=== PATIENT | female | born 1980 | race Two or more races ===

== ENCOUNTER 2024-07-13 15:34 | Outpatient (REF) | payer SELFPAY ==
[2024-07-13 16:23] LABS: MANUAL DIFF FLAG NO
[2024-07-13 16:35] LABS: Basophils Percent Auto 0.4 % (0-2); Eosinophils Absolute Auto 0.1 X10*3/uL (0.0-0.4); Eosinophils Percent Auto 0.8 % (0-4); Hematocrit 37.1 % (37.0-47.0); Hemoglobin 12.3 g/dl (12.0-16.0); Imm Gran Abs Auto 0.02 X10*3/uL (0.00-0.03); Imm Gran Pct Auto 0.3 % (0.0-0.4); Lymphocytes Absolute Auto 1.7 X10*3/uL (1.2-4.9); Lymphocytes Percent Auto 21.8 % (20-40); Mean Corpuscular HGB Conc 33.2 g/dl (31.0-35.0); Mean Corpuscular Hemoglobin 31.4 pg (27.0-33.0); Mean Corpuscular Volume 94.6 fL (80.0-98.0); Mean Platelet Volume 10.2 fL (9.4-12.3); Monocytes Absolute Auto 0.6 X10*3/uL (0.1-1.2); Monocytes Percent Auto 8.2 % (2-11); Neutrophils Absolute Auto 5.3 x10*3/uL (2.0-8.3); Neutrophils Percent Auto 68.5 % (45-73); Platelet Count 310 X10*3/uL (160-400); Red Blood Count 3.92 X10*6/uL (4.20-5.50); Red Cell Distribution Width 12.6 % (11.0-16.0); White Blood Count 7.7 X10*3/uL (4.8-10.8)
[2024-07-13 17:14] LABS: Anion Gap 12 (12-20); Blood Urea Nitrogen 16 mg/dL (9-16); Calcium 9.9 mg/dL (8.4-10.2); Carbon Dioxide 27 mmol/L (22-29); Chloride 105 mmol/L (96-108); Estimated Glomerular Filt Rate > 60; Glucose Random 90 mg/dL (60-115); Potassium 3.5 mmol/L (3.3-5.1); Sodium 140 mmol/L (135-145)
== END 2024-07-13 15:35 | disposition home or self-care (01) ==
LOC: HO.HHCL 15:34
PROVIDERS: Visit Provider Family Medicine
DX: R55 Syncope and collapse (principal)
CPT/HCPCS: 36415; 80048; 85025

== ENCOUNTER 2025-04-03 11:03 | Emergency (ER) | payer MEDICAID, SELFPAY ==
--- NOTE | ~2025-04-03 | CT_ITS ---
EXAMINATION: CT CERVICAL SPINE WITHOUT CONTRAST CLINICAL INFORMATION: Injury. COMPARISON: None available. TECHNIQUE: Contiguous axial images through the cervical spine using 3 mm collimation with bone and soft tissue algorithm. Sagittal and coronal reformatted images acquired. DLP: [address] examination was performed using dose optimization techniques as appropriate, variously including the following: *Automated exposure control *Adjustment of mA and/or kV according to patient size (this includes techniques or standardized protocols for targeted exams where dose is matched to indication/reason for exam; i.e. extremities or head) *Use of iterative reconstruction technique FINDINGS: Craniocervical junction is intact with normal alignment between the occipital condyles and lateral masses of C1. Marginal osteophyte formation and endplate sclerosis with decreased intervertebral disc height at C5-C6. Reverse kyphotic deformity apex at C5-C6. C1 is intact. C2 is intact. C3 is intact. C4 is intact. C5 is intact. C6 is intact. C7 is intact. No gross prevertebral compartment hematoma. Tympanic cavities and mastoid cells are aerated. Probable high riding right internal jugular bulb. CT/CT cervical spine wo IV con IMPRESSION: Cervical spondylosis C5-6 resulting in kyphotic deformity. No acute fracture or trauma-related listhesis. Fleischner guidelines were followed. Electronically signed by: Denys Dangelo MD 04/03/2025 03:09 PM EDT
--- NOTE | ~2025-04-03 | XR_ITS ---
CLINICAL HISTORY: fall, pain 3 views sacrum and coccyx Comparison: None Findings No acute fractures. No significant degenerative change. No erosions. IMPRESSION: No acute findings This document has been electronically signed by: Ajith Jordan MD on 04/03/2025 21:19:59
--- NOTE | ~2025-04-03 | CT_ITS ---
EXAMINATION: CT HEAD WITHOUT CONTRAST CLINICAL INFORMATION: hit head COMPARISON: None available. TECHNIQUE: Contiguous axial imaging was performed from the skull base to vertex without intravenous administration of contrast. This CT examination was performed using dose optimization techniques as appropriate, variously including the following: *Automated exposure control *Adjustment of mA and/or kV according to patient size (this includes techniques or standardized protocols for targeted exams where dose is matched to indication/reason for exam; i.e. extremities or head) *Use of iterative reconstruction technique DLP: 545 mGy-cm FINDINGS: No acute cortical disruption, bony calvarium or skull base. No acute intracranial hemorrhage, mass effect, midline shift, hydrocephalus or herniation. Combs-white matter differentiation is normal. Posterior cranial fossa contents demonstrated no acute intracranial hemorrhage or mass effect. Sellar/suprasellar region demonstrated no gross masses. Craniocervical junction demonstrates normal position of the cerebellar tonsils. No air-fluid levels in the paranasal sinuses. For pneumatization right frontal sinus. Tympanic cavities and mastoid air cells are aerated. Probable high riding right internal jugular bulb. CT/CT head/brain wo IV con IMPRESSION: No acute fracture, bony calvarium. No acute intracranial hemorrhage. Electronically signed by: Denys Dangelo MD 04/03/2025 02:59 PM EDT
[2025-04-03 13:32] VITALS: BP 104/66; PULSE 94; RESP 18; TEMP 36.2; O2SAT 100; BMI 25.8
--- NOTE | 2025-04-03 13:43 | ECG_ITS ---
Test Reason : syncope Blood Pressure : */* mmHG Vent. Rate : 89 BPM Atrial Rate : 89 BPM P-R Int : 142 ms QRS Dur : 68 ms QT Int : 366 ms P-R-T Axes : 52 64 41 degrees QTcB Int : 445 ms Normal sinus rhythm Normal ECG No previous ECGs available Referred By: Jero Mendoza Electronically Signed By: KELLY ARELLANO MD
--- NOTE | 2025-04-03 13:43 | ED.GENADULT ---
HPI - General Adult General Chief complaint: General Medical Stated complaint: head strike, dizzy, not feeling well Time Seen by Provider: 04/03/25 20:01 Source: patient, family and EMS Mode of arrival: EMS Limitations: no limitations History of Present Illness ED Provider: brittney marte np HPI narrative: Patient is a 44-year-old female who presents emergency department for evaluation. She reports yesterday evening at approximately 23:30 she had consumed a chicken sandwich with mustard from her job. 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 Throughout the day today, when she awakened she states that she had 2 episodes of bilious vomiting and 1 further episode of watery diarrhea. After the 2nd episode of vomiting she was feeling dizzy, sat down on the sofa, felt as though she needed to go to the bathroom again upon standing seems she had syncopized, striking her head into a piece of furniture? This was not witnessed, she does not recall exactly what happened, but states that she had regained consciousness almost immediately after, she went to sit down on the sofa which she thought was behind her but she missed in subsequently landed onto the ground onto her buttocks. She denies having a repeat head strike with this. Currently she is complaining of pain to her tailbone/coccyx. She denies any headache, dizziness, neck pain, neck stiffness, chest pain or shortness of breath. She denies any recent symptoms or concern for . Related Data Previous Rx's ?Medication ?Instructions ?Recorded cefpodoxime 200 mg tablet 200 mg PO BID #20 tabs 04/03/25 ondansetron 4 mg disintegrating 4 mg PO Q8H PRN nausea and 04/03/25 tablet vomiting #10 tabs Allergies Allergy/AdvReac Type Severity Reaction Status Date / Time No Known Allergies Allergy Verified 04/03/25 13:32 Review of Systems Review of Systems: Yes all other systems are reviewed and are negative PMFSH Past Medical History Attestation statement: The following information was validated with the patient. Source: old records reviewed Social History Social History Advance Directives: No Advance Directives Information Provided: No Do you have a plan to hurt others: No Plan Physical Exam ED Vital Signs: Vital Signs - 24 hr 04/03/25 23:56 04/04/25 00:00 Temperature 98.2 F 98.2 F Pulse Rate 72 72 Respiratory Rate 16 16 Blood Pressure 101/63 101/63 Pulse Oximetry 97 97 Oxygen Delivery Method Room Air Room Air BMI result Body Mass Index 25.8 Course Course Course Narrative: RME: 44-year-old female presents to ED for vomiting and diarrhea and then stood vomiting again and syncopal episode and fell and hit her head in the bathroom. Negative for any neuro deficits. Labs EKG head CT scan ordered Medications Administered Discontinued Medications Generic Name Dose Route Start Last Admin Trade Name Freq PRN Reason Stop Dose Admin Ceftriaxone Sodium 1 gm 04/03/25 21:01 04/03/25 21:47 Ceftriaxone Sodium 1 Gm Vial IVPUSH 04/03/25 21:02 1 gm ONCE ONE Administration Sodium Chloride 1,000 mls @ 999 mls/hr 04/03/25 21:15 04/03/25 23:44 Ns IV 04/03/25 22:15 Infused .Q1H1M ROBERT Infusion Ondansetron HCl 4 mg 04/03/25 21:01 04/03/25 21:47 Ondansetron Hcl 4 Mg/2 Ml Vial IVPUSH 04/03/25 21:02 4 mg ONCE ONE Administration Medical Decision Making Medical Decision Making [facility] Narrative: Patient is a 44-year-old female with no reported past medical history presenting for syncope after multiple bouts of vomiting and diarrhea as per HPI. Overall she is well-appearing, nontoxic. She has been focal neurological deficits. She is afebrile, no tachycardia. No hypoxia tachypnea. CT head and cervical spine were obtained prior to my assumption of care and are without ICH, SDH, fracture, no evidence of cervical spine fracture subluxation. I suspect that this was likely a vagal syncopal episode, obtaining orthostatic vital signs, she may have exhibited these symptoms secondary to dehydration in the setting of her gastrointestinal illness. She additionally had serum labs obtained prior to my assumption of care. CBC is without leukocytosis anemia or thrombocytopenia. No electrolyte derangement. No RICCARDO. LFTs overall unremarkable. High sensitive troponin is below detectable limits, ECG reveals normal sinus rhythm with ventricular rate of 89, QTC 445, no ST-elevation. HCG is negative. Urinalysis was obtained and is concerning for urinary tract infection, she denies dysuria, urinary frequency/urgency/hesitancy, denies hematuria. No history of kidney stones. She does admit that she does not drink enough water. On examination she has mild bilateral left > right CVA tenderness but otherwise was not reporting pain to this location prior to examination. She endorses mild nausea but has not had any episodes of vomiting since arrival to the ED. patient will receive 1 L normal saline IV fluids, Zofran IV, a dose of Rocephin IV. Given her CVA tenderness nausea and vomiting she may potentially have pyelonephritis, though she does not have an RICCARDO if she is otherwise able to tolerate oral intake and is not without systemic toxicity feel that she would be stable for discharge home outpatient follow-up with primary care provider strict return precautions. Differential Diagnosis Differential Diagnoses: The differential diagnosis associated with the presentation includes (See narrative above) Admission/Observation Consideration of admission/observation: Escalation of care including admission/observation considered (See narrative above) Lab Data MDM Lab Attestation statement: I reviewed the patient's lab results. (See narrative above) 04/03/25 14:11 04/03/25 14:11 Labs: Lab Results 04/03/25 04/03/25 Range/Units 14:11 20:11 WBC 8.1 (4.8-10.8) X10*3/uL RBC 4.46 (4.20-5.50) X10*6/uL Hgb 13.8 (12.0-16.0) g/dl Hct 41.0 (37.0-47.0) % MCV 91.9 (80.0-98.0) fL MCH 30.9 (27.0-33.0) pg MCHC 33.7 (31.0-35.0) g/dl RDW 12.6 (11.0-16.0) % Plt Count 286 (160-400) X10*3/uL MPV 9.3 L (9.4-12.3) fL Immature Gran % (Auto) 0.2 (0.0-0.4) % Neut % (Auto) 84.6 H (45-73) % Lymph % (Auto) 8.1 L (20-40) % [place] % (Auto) 6.8 (2-11) % Eos % (Auto) 0.1 (0-4) % Baso % (Auto) 0.2 (0-2) % Lymph # (Auto) 0.7 L (1.2-4.9) X10*3/uL [place] # (Auto) 0.6 (0.1-1.2) X10*3/uL Eos # (Auto) 0.0 (0.0-0.4) X10*3/uL Baso # (Auto) 0.0 (0.0-0.2) X10*3/uL Abs Immat Gran (auto) 0.02 (0.00-0.03) X10*3/uL Absolute Neuts (auto) 6.8 (2.0-8.3) x10*3/uL Absolute Nucleated RBC 0.000 (0.0-0.012) X10*3/uL Nucleated RBC % (auto) 0.0 (0.0-0.2) /100WBC Sodium 137 (135-145) mmol/L Potassium 3.7 (3.3-5.1) mmol/L Chloride 101 (96-108) mmol/L Carbon Dioxide 28 (22-29) mmol/L Anion Gap 12 (12-20) BUN 17 H (9-16) mg/dL Creatinine 0.86 (0.5-1.4) mg/dL Estim Creat Clear Calc 68.9 Estimated GFR > 60 Random Glucose 111 (60-115) mg/dL Calcium 9.5 (8.4-10.2) mg/dL Total Bilirubin 1.1 H (0.0-1.0) mg/dL AST 25 (5-31) U/L ALT 19 (0-31) U/L Alkaline Phosphatase 73 (39-117) U/L Troponin I High Sens < 2.7 (<3.5-17.0) ng/L Total Protein 8.0 (6.5-8.0) g/dL Albumin 4.9 (3.5-5.0) g/dL Lipase 39 (8-78) U/L Beta HCG, Quant < 2 mIU/mL Urine Color Dark Yellow Urine Appearance Clear Urine pH 6.5 (5.0-9.0) Ur Specific [place] 1.020 (1.005-1.025) Urine Protein Trace (Neg-Trace) mg/dL Urine Glucose (UA) Negative (Negative) mg/dL Urine Ketones Trace (Negative) mg/dL Urine Blood Moderate (2+) H (Negative) Urine Nitrite Positive H (Negative) Ur Leukocyte Esterase Moderate (2+) H (Negative) Urine RBC 6-10 H (0-2) /HPF Urine WBC 21-50 H (0-5) /HPF Ur Squamous Epith Cells 0-2 (0-2) /HPF Urine Bacteria 4+ (None Seen) Hyaline Casts 0-2 (0-2) /LPF Influenza Type A (PCR) NEGATIVE (Negative) Influenza Type B (PCR) NEGATIVE (Negative) RSV RNA Qual (PCR) NEGATIVE (Negative) SARS-CoV-2 RNA (RT-PCR) NEGATIVE (Negative) Independent Interpretation I performed an independent interpretation of an: EKG (See narrative above) and CT Scan (See narrative above) Radiology Impression Discussion of test interpretation with radiology: I have reviewed the radiologist's reading. Radiologist Impression: CT/CT head/brain wo IV con IMPRESSION: No acute fracture, bony calvarium. No acute intracranial hemorrhage. CT/CT cervical spine wo IV con IMPRESSION: Cervical spondylosis C5-6 resulting in kyphotic deformity. No acute fracture or trauma-related listhesis. Fleischner guidelines were followed. Prescription Management I considered prescription management with: Antibiotic Discharge Plan Discharge Clinical Impression: Gastroenteritis Urinary tract infection Qualifiers: Urinary tract infection type: acute cystitis Hematuria presence: without hematuria Qualified Code(s): N30.00 - Acute cystitis without hematuria Patient Disposition: Home, Self-Care Instructions: Urinary Tract Infection in Women (ED), Gastroenteritis (ED) Additional Instructions: You were found today to have a urinary tract infection for which you were given a dose of antibiotics in the emergency department. I have sent a prescription for an antibiotic to your pharmacy. Please be sure that you are staying well hydrated drinking plenty of water throughout the day at least 8, 8-12 oz glasses of water daily. A prescription for Zofran has been sent to the pharmacy to help with nausea/vomiting. Introduce a bland diet including crackers, bananas, rice, soup, toast, and boiled vegetables. This may progress to plain baked or boiled chicken or turkey. Avoid dairy products or foods high in fat or grease. Radiology imaging today did not show abnormal findings and side of the brain after your head injury, as discussed you can have these types of symptoms from vasovagal syncope which can happen when dehydrated is specially in the setting of having multiple bouts of vomiting and diarrhea. I suspect that you likely had a food-borne illness or possibly a viral illness of the GI tract resulting in the vomiting and diarrhea as well. Please contact your primary care provider to arrange for a follow-up visit. No eye return to emergency department any new or worsening symptoms or concerns. Prescriptions: New cefpodoxime 200 mg tablet 200 mg PO BID Qty: 20 0RF Rx Instructions: must administer with a meal/food ondansetron 4 mg tablet,disintegrating 4 mg PO Q8H PRN (Reason: nausea and vomiting) Qty: 10 0RF Referrals: Physician,None [Primary Care Provider] - Interventions: ED Discharge Assessment Last Done: 04/04/25 00:00 Discharge Date/Time: 04/04/25 00:01 Print Language: Israeli
[2025-04-03 14:18] LABS: MANUAL DIFF FLAG NO
[2025-04-03 14:20] LABS: Basophils Percent Auto 0.2 % (0-2); Eosinophils Percent Auto 0.1 % (0-4); Hemoglobin 13.8 g/dl (12.0-16.0); Imm Gran Abs Auto 0.02 X10*3/uL (0.00-0.03); Imm Gran Pct Auto 0.2 % (0.0-0.4); Lymphocytes Absolute Auto 0.7 X10*3/uL (1.2-4.9); Lymphocytes Percent Auto 8.1 % (20-40); Mean Corpuscular HGB Conc 33.7 g/dl (31.0-35.0); Mean Corpuscular Hemoglobin 30.9 pg (27.0-33.0); Mean Corpuscular Volume 91.9 fL (80.0-98.0); Mean Platelet Volume 9.3 fL (9.4-12.3); Monocytes Absolute Auto 0.6 X10*3/uL (0.1-1.2); Monocytes Percent Auto 6.8 % (2-11); Neutrophils Absolute Auto 6.8 x10*3/uL (2.0-8.3); Neutrophils Percent Auto 84.6 % (45-73); Platelet Count 286 X10*3/uL (160-400); Red Blood Count 4.46 X10*6/uL (4.20-5.50); Red Cell Distribution Width 12.6 % (11.0-16.0); White Blood Count 8.1 X10*3/uL (4.8-10.8)
[2025-04-03 14:39] LABS: Alanine Aminotransferase 19 U/L (0-31); Albumin Level 4.9 g/dL (3.5-5.0); Alkaline Phosphatase 73 U/L (39-117); Anion Gap 12 (12-20); Aspartate Amino Transferase 25 U/L (5-31); Bilirubin Total 1.1 mg/dL (0.0-1.0); Blood Urea Nitrogen 17 mg/dL (9-16); Calcium 9.5 mg/dL (8.4-10.2); Carbon Dioxide 28 mmol/L (22-29); Chloride 101 mmol/L (96-108); Creatinine Clr Calc Pharmacy 68.9; Estimated Glomerular Filt Rate > 60; Glucose Random 111 mg/dL (60-115); Lipase 39 U/L (8-78); Potassium 3.7 mmol/L (3.3-5.1); Sodium 137 mmol/L (135-145)
[2025-04-03 14:40] LABS: HCG Quantitative < 2 mIU/mL; Troponin-I High Sensitivity < 2.7 ng/L (<3.5-17.0)
[2025-04-03 15:22] LABS: Influenza A PCR NEGATIVE (Negative); Influenza B PCR NEGATIVE (Negative); Resp Syncy Virus RNA Qual PCR NEGATIVE (Negative); SARS COV2 PCR INHOUSE NEGATIVE (Negative)
[2025-04-03 20:00] VITALS: BP 105/69; PULSE 84; RESP 16; TEMP 36.2; O2SAT 100
[2025-04-03 20:20] LABS: Appearance Urine Clear; Color Urine Dark Yellow; Glucose Urine UA Negative (Negative); Leukocyte Esterase Urine Moderate (2+) (Negative); Nitrite Urine Positive (Negative); PH 6.5 (5.0-9.0); UMIC TRIGGER UACC YES; Urine Blood Moderate (2+) (Negative); Urine Ketones Trace mg/dL (Negative); Urine Protein Trace mg/dL (Neg-Trace)
[2025-04-03 20:31] LABS: Bacteria Urine 4+ (None Seen); Hyaline Casts Urine 0-2 /LPF (0-2); Squamous Epithelial Cell Urine 0-2 /HPF (0-2); UACC Culture Trigger YES; WBC Urine 21-50 /HPF (0-5)
[2025-04-03 20:48] VITALS: BP 115/78; PULSE 80
[2025-04-03 21:34] VITALS: BP 108/71; PULSE 77
[2025-04-03 21:36] VITALS: BP 116/72; PULSE 83
[2025-04-03] MEDS: ondansetron HCL 4 MG/2 ML VIAL IVPUSH (21:47)
[2025-04-03] MEDS: cefTRIAXone sodium 1 GM VIAL IVPUSH (21:47)
[2025-04-03] MEDS: 0.9 % Sodium Chloride 1,000 ML 999 ML IV (21:47)
[2025-04-03 23:56] VITALS: BP 101/63; PULSE 72; RESP 16; TEMP 36.8; O2SAT 97
[2025-04-04] VITALS: BP 101/63; PULSE 72; RESP 16; TEMP 36.8; O2SAT 97
== END 2025-04-04 00:01 | disposition home or self-care (01) ==
PROVIDERS: Physician Assistant; Emergency Provider Emergency Medicine
DX: K52.9 Noninfective gastroenteritis and colitis, unspecified (principal); N30.00 Acute cystitis without hematuria; Z03.818 Encounter for observation for suspected exposure to other biological agents ruled out; R11.10 Vomiting, unspecified
CPT/HCPCS: 0241U; 70450; 72125; 72220; 80053; 81001; 83690; 84484; 84702; 85025; 87086; 87088; 87186; 93005; 96361; 96374; 96375; 99284; J0696; J2405

== ENCOUNTER → 2025-04-03 13:43 | Outpatient (BNV) | payer SELFPAY | PROVIDERS: Visit Provider Radiology Diagnostic Radiology | DX: M47.812 Spondylosis without myelopathy or radiculopathy, cervical region (principal); S09.90XA Unspecified injury of head, initial encounter; M53.3 Sacrococcygeal disorders, not elsewhere classified | CPT/HCPCS: 70450; 72125; 72220 ==

== ENCOUNTER → 2025-04-03 13:43 | Outpatient (BNV) | payer SELFPAY | PROVIDERS: Visit Provider Internal Medicine Cardiovascular Disease | DX: R55 Syncope and collapse (principal) | CPT/HCPCS: 93010 ==

== ENCOUNTER 2025-07-02 08:11 | Outpatient (REF) | payer MEDICAID, SELFPAY ==
--- OUTSIDE RECORDS SUMMARY | 2025-07-02 09:02 | XMS_ITS | Clinical Summary ---
Author Organization [employer] Address [address] [place] [address] [address] [place] [address] Care Team Providers Care Regulatory Affairs Assistant Name Role Phone Thania Luciano MD Primary Care Pro vider Allergies No known active allergies Medications * This document contains information received from the source organization and may not represent a complete record from that organization. omega-3 acid ethyl esters (Lovaza) 1 g capsule Take 500 mg by mouth Once per day. Active alpha tocopherol (Vitamin E) 100 units capsule Take 100 Units by mouth Once per day. Active cholecalciferol (Vitamin D-3) 25 MCG (1000 UT) capsule Take 1,000 Units by mouth Once per day. Active Collagen-Vitami n C-Biotin (Collagen) 500-50-0.8 MG capsule Take by mouth. Activ e Melatonin 3 MG tablet dispersible Take 1 tablet (3 mg) by mouth if needed at bedtime (insomnia). 30 tablet 3 5 Active carbamide peroxide (Debrox) 6.5 % otic solution Administer 5 drops into the right ear 2 times daily. Apply 5 gtt to right ear for 1 week frisian 15 mL 4 06/25/20 25 Discontin ued(Other ) Active Problems Problem Noted Date Diagnosed Date Health care maintenance 06/25/2025 Bipolar 1 disorder 06/25/2025 Assessment & Plan (06/26/2025 4:11 PM EDT): During I[facility] Consult Claudia presenting with Abnormally elevated mood, Decreased need for sleep, Flight of ideas, Excessive goal directed activity, and Other: feeling irritable, self-confident more than usual, low-mood, fatigue, hopelessness, racing thoughts, fast speech and crying spells, sadness, confusion, yearning for her loved ones who ; for a period of 6-12 mo, for most or all symptoms in the context of and recent move. Pt relocated from [place] about a year ago. She recalls having experiences in the past that affected her mental health. Moving to [place] has helped pt to feel less stressed, however, patient is not able to manage/cope on her own. She was diagnosed with bipolar disorder in [place]. MDQ completed during session given a positive score today. Her grieving process has being identified as trigger for her mood episodes making it worse to manage. Pt reports being on medication in the past but self-discharged due to side effects. Insomnia 06/25/2025 Alcohol dependence, binge pattern 06/25/2025 Family history of cancer 06/25/2025 Grief 06/25/2025 Assessment & Plan (06/26/2025 4:11 PM EDT): During IBH Consult Claudia presenting with Abnormally elevated mood, Decreased need for sleep, Flight of ideas, Excessive goal directed activity, and Other: feeling irritable, self-confident more than usual, low-mood, fatigue, hopelessness, racing thoughts, fast speech and crying spells, sadness, confusion, yearning for her loved ones who ; for a period of 6-12 mo, for most or all symptoms in the context of and recent move. Pt relocated from [place] about a year ago. She recalls having experiences in the past that affected her mental health. Moving to [place] has helped pt to feel less stressed, however, patient is not able to manage/cope on her own. She was diagnosed with bipolar disorder in [place]. MDQ completed during session given a positive score today. Her grieving process has being identified as trigger for her mood episodes making it worse to manage. Pt reports being on medication in the past but self-discharged due to side effects. Vasovagal syncope 07/13/2024 Assessment & Plan (07/13/2024 3:33 PM EDT): Likely a syncopal episode due to heat exhaustion. Less likely seizure activity, given no hx of epilepsy, no tongue biting, urinary incontinence or post ictal state. -ordered labs 07/13/24 -ER precautions Encounters * This document contains information received from the source organization and may not represent a complete record from that organization. Date Type Department Care Team Description 06/25/2025 10:15 AM EDT Office Visit [facility] [address] [place] [id number] Thania Luciano MD Family history of malignant neoplasm (Primary Dx); Dietary counseling; Exercise counseling; Breast cancer screening by mammogram; Colon cancer screening; Annual physical exam; Health care maintenance; Bipolar 1 disorder (CMS/HCC); Insomnia due to other mental disorder; Alcohol dependence, binge pattern (CMS/HCC); Family history of cancer 06/25/2025 Travel 06/21/[address] [id number] Michelle Hackett MA chart prep 06/18/2025 Patient Outreach [address] [phone] Thania Luciano MD Care Coordination ([facility] outreach for SDOH housing search-referral completed ) 06/18/2025 Patient Outreach [address] [phone] Gurjit Cruz MD Pre-visit Planning (SDOH screening negative and Tobacco screening negative) 04/03/2025 Telephone [facility] [address] [place] [id number] Denisse Montelongo MD from Last 3 Months Immunizations Immunization Administration Dates Next Due Tdap 09/13/2024 Family History Medical History Relation Name Comments colon ca at his 60s Father Uterine cancer Father's Sister Skin cancer Maternal Grandmother Breast ca 52 y of age Mother's Sister Relation Name Status Comments Father Father's Sister Maternal Grandmother Mother's Sister Social History Tobacco Use Types Packs/Day Years Used Date Smoking Tobacco: Never Smokeless Tobacco: Never Tobacco Cessation:Counseling Given: Not Answered Alcohol Use Standard Drinks/Week Comments Yes 0 (1 standard drink = 0.6 oz pure alcohol) social-reports aprox 6 glasses hard liquor-cockatils at least 3 times a month Depression Answer Date Recorded Patient Health Questionnaire-9 Score 0 06/25/2025 Patient Health Questionnaire-9 Score 0 06/25/2025 Last PHQ-9: Questionnaire Data Not on file 0 06/25/2025 Housing Stability Answer Date Recorded What is your housing situation today? I have oscar acosta 06/18/[address] you li ve. Do you have problems with any of the following? None of the above 06/18/2025 Food Insecurity Answer Date Recorded Within the past 12 months, y ou worried that your food would run out before you got money to buy more: Never True 06/18/2025 Within the past 12 months,th e food you bought just didn't last and you didn't have enough money to get more: Never True Transportation Answer Date Recorded In the past 12 months, has l ack of transportation kept you from medical appts, meetings, work or from getting things needed for daily living? No 06/18/2025 Utilities Answer Date Recorded In the past 12 months, has t he electric, gas, oil or water company threatened to shut off services in your home? No 06/18/2025 Depression Answer Date Recorded Patient Health Questionnaire-2 Score 0 06/25/2025 Internet Access Answer Date Recorded Internet Access Q1 Yes 06/18/2025 Internet Access Q2 Not on file 06/18/2025 Comments Unknown Sex and Gender Information Value Date Recorded Sex Assigned at Female 07/13/2024 2:56 PM EDT Legal Sex Female 10:01 AM EDT Gender Identity Female 07/13/2024 2:56 PM EDT Sexual Orientation Straight 06/25/2025 10 :29 AM EDT Last Filed Vital Signs Vital Sign Reading Time Taken Comments Blood Pressure 110/76 06/25/2025 10:17 AM EDT Pulse 62 06/25/2025 10:17 AM EDT Temperature 36.1 C (97 F) 06/25/2025 10:17 AM EDT Respiratory Rate 20 06/25/2025 10:17 AM EDT Oxygen Saturation 99% 06/25/2025 10:17 AM EDT Inhaled Oxygen Concentration - - Weight 62.6 kg (138 lb) 06/25/2025 10:17 AM EDT Height 154.9 cm (5' 1 ) 06/25/2025 10:17 AM EDT Body Mass Index 26.07 06/25/2025 10:17 AM EDT Plan of Treatment Health Maintenance Due Date Last Done Comments CT Colonography 1978 Colonoscopy 1978 Colorectal Cancer Screening 1978 FIT DNA/Cologuard 1978 FIT 1978 FOBT 1978 HIV Screening 1978 Sigmoidoscopy 1978 Family Planning (PISQ) 1993 Hepatitis C Screening 1996 Hepatitis B Vaccines (1 of 3 - 19+ 3-dose series) 1997 Pneumococcal Vaccine: Pediatrics (0 to 5 Years) and At-Risk Patients (6 to 49) Years (1 of 2 - PCV) 1997 Pap Smear 1999 Cervical Cancer Screening 2008 HPV/Cotest 2008 Mammogram 2018 COVID-19 Vaccine ( - 2023-2 5 season) 2025 Influenza Vaccine (#1) 2025 SDOH Screening 06/18/2026 06/18/2025 Alcohol/Substance Use Screening 06/25/2026 06/25/2025 Depression Screening 06/25/2026 06/25/2025, 06/25/2025 Disability Screening 06/25/2026 06/25/2025 Tobacco Screening 06/25/2026 06/25/2025 Zoster Vaccines (1 of 2) 2028 DTaP/Tdap/Td Vaccines (2 - T d or Tdap) 09/13/2034 09/13/2024 RSV Patients and Patients Aged 60 years or older (1 - 1-dose 75+ series) 2053 HIB Vaccines Aged Out No longer eligi ble based on patient's age to complete this topic HPV Vaccines Aged Out No longer eligi ble based on patient's age to complete this topic Hepatitis A Vaccines Aged Out No long er eligible based on patient's age to complete this topic IPV Vaccines Aged Out No longer eligi ble based on patient's age to complete this topic Meningococcal B Vaccine Aged Out No l onger eligible based on patient's age to complete this topic Meningococcal Vaccine Aged Out No lia alexx eligible based on patient's age to complete this topic RSV under 20 months Aged Out No longe r eligible based on patient's age to complete this topic Rotavirus Vaccines Aged Out No longer eligible based on patient's age to complete this topic Insurance HSN PARTIAL Care Teams Regulatory Affairs Assistant Relationship Specialty Start Date End Date Thania Luciano MD [address] [place] [phone] PCP - General Internal Medicine 06/25/25
[2025-07-02 11:24] LABS: MANUAL DIFF FLAG NO
[2025-07-02 11:33] LABS: Hematocrit 42.6 % (37.0-47.0); Hemoglobin 13.5 g/dl (12.0-16.0); Imm Gran Abs Auto 0.01 X10*3/uL (0.00-0.03); Imm Gran Pct Auto 0.2 % (0.0-0.4); Lymphocytes Absolute Auto 1.6 X10*3/uL (1.2-4.9); Mean Corpuscular HGB Conc 31.7 g/dl (31.0-35.0); Mean Corpuscular Hemoglobin 30.6 pg (27.0-33.0); Mean Corpuscular Volume 96.6 fL (80.0-98.0); NRBC Abs Auto 0.000 X10*3/uL (0.0-0.012); NRBC Pct Auto 0.0 /100WBC (0.0-0.2); Platelet Count 329 X10*3/uL (160-400); Red Blood Count 4.41 X10*6/uL (4.20-5.50); White Blood Count 5.8 X10*3/uL (4.8-10.8)
[2025-07-02 11:45] LABS: Hemoglobin A1C 126.0768 umol/L; Total Hemoglobin (HGBA1C) 3620.2920 umol/L
[2025-07-02 12:03] LABS: Alanine Aminotransferase 14 U/L (0-31); Albumin Level 4.7 g/dL (3.5-5.0); Alkaline Phosphatase 62 U/L (39-117); Anion Gap 13 (12-20); Aspartate Amino Transferase 21 U/L (5-31); Blood Urea Nitrogen 19 mg/dL (9-16); Calcium 9.2 mg/dL (8.4-10.2); Carbon Dioxide 27 mmol/L (22-29); Chloride 105 mmol/L (96-108); Cholesterol 276 mg/dL (<200); Estimated Glomerular Filt Rate > 60; HDL Cholesterol 63 mg/dL (>40); Potassium 4.3 mmol/L (3.3-5.1); Sodium 141 mmol/L (135-145); Total Protein 7.6 g/dL (6.5-8.0); Triglycerides 196 mg/dL (<150)
[2025-07-02 12:20] LABS: Syphilis Screen Nonreactive (Nonreactive)
[2025-07-02 12:29] LABS: HBS Num1 0.00 mIU/mL (0-7.99); HBc Num1 0.06 S/CO (0.00-0.79); HBsAGNum1 0.41 S/CO (0.00-0.99); HIV Num 1 0.05 S/CO (0.00-0.99); Hepatitis B Surface Antigen Negative (Negative); ~HepC Num1 0.13 S/CO (0.00-0.79); ~Hepatitis B Surface Antibody NONREACTIVE (Nonreactive); ~Hepatitis C Antibody Nonreactive (Nonreactive)
[2025-07-02 13:02] LABS: CT PCR Urine NOT DETECTED (Not Detect.); NG PCR Urine NOT DETECTED (Not Detect.)
== END 2025-07-02 08:12 | disposition home or self-care (01) ==
LOC: HO.HHCL 08:11
PROVIDERS: PCP Student in an Organized Health Care Education/Training Program; Visit Provider Student in an Organized Health Care Education/Training Program
DX: Z00.00 Encounter for general adult medical examination without abnormal findings (principal); Z11.3 Encounter for screening for infections with a predominantly sexual mode of transmission; Z11.8 Encounter for screening for other infectious and parasitic diseases; Z11.4 Encounter for screening for human immunodeficiency virus [HIV]; Z11.59 Encounter for screening for other viral diseases
CPT/HCPCS: 80053; 80061; 83036; 84443; 85025; 86704; 86706; 86780; 86803; 87340; 87389; 87491; 87591

== ENCOUNTER 2025-08-01 12:05 | Outpatient (REF) | payer OTHER, SELFPAY | END 2025-08-01 12:06 | disposition home or self-care (01) | LOC: HO.MAMMO 12:05 | PROVIDERS: PCP Student in an Organized Health Care Education/Training Program; Visit Provider Student in an Organized Health Care Education/Training Program | DX: Z12.31 Encounter for screening mammogram for malignant neoplasm of breast (principal) | CPT/HCPCS: 77063; 77067 ==

== ENCOUNTER → 2025-08-01 12:30 | Outpatient (BNV) | payer OTHER, SELFPAY | PROVIDERS: PCP Student in an Organized Health Care Education/Training Program; Visit Provider Radiology Body Imaging | DX: Z12.31 Encounter for screening mammogram for malignant neoplasm of breast (principal) | CPT/HCPCS: 77063; 77067 ==

== ENCOUNTER 2025-09-26 12:11 | Outpatient (REF) | payer OTHER, SELFPAY ==
--- NOTE | ~2025-09-26 | XR_ITS ---
EXAMINATION: XR HUMERUS, LEFT CLINICAL INFORMATION: left humerus pain no trauma COMPARISON: None available. TECHNIQUE: AP and lateral views of the left humerus. FINDINGS: No acute cortical disruption. No lytic or blastic lesions. No periosteal bone reaction. No subcutaneous emphysema. No metallic or radiopaque foreign body. XR/XR humerus LT IMPRESSION: Normal x-ray, left humerus. Electronically signed by: Denys Dangelo MD 09/26/2025 12:29 PM ANNA
== END 2025-09-26 12:12 | disposition home or self-care (01) ==
LOC: HO.HHCX 12:11
PROVIDERS: PCP Student in an Organized Health Care Education/Training Program; Visit Provider Student in an Organized Health Care Education/Training Program
DX: M79.602 Pain in left arm (principal)
CPT/HCPCS: 73060

== ENCOUNTER → 2025-09-26 12:16 | Outpatient (BNV) | payer OTHER, SELFPAY | PROVIDERS: PCP Student in an Organized Health Care Education/Training Program; Visit Provider Radiology Diagnostic Radiology | DX: M79.622 Pain in left upper arm (principal) | CPT/HCPCS: 73060 ==

== ENCOUNTER 2025-10-21 08:48 | Outpatient (REF) | payer OTHER, SELFPAY ==
--- OUTSIDE RECORDS SUMMARY | 2025-10-21 08:53 | XMS_ITS | Encounter Summary ---
Author Organization [employer] Address [address] [place] [address] 7 [place] [address] Care Team Providers Care Propeller Layout Worker Name Role Phone Thania Luciano MD Primary Care Pro vider Encounter Details Date Type Department Care Team ([facility] st Contact Info) Description 09/26/2025 Results Follow-Up [facility] MEDICINE [address] [place] [address] Thania Luciano MD [address] [place] [address] XR Humerus Left Social History Tobacco Use Types Packs/Day Years Used Date Smoking Tobacco: Never Smokeless Tobacco: Never Alcohol Use Standard Drinks/Week Comments Yes 0 (1 standard drink = 0.6 oz pure alcohol) social-reports aprox 6 glasses hard liquor-cockatils at least 3 times a month Depression Answer Date Recorded Patient Health Questionnaire-9 Score 5 07/29/2025 Patient Health Questionnaire-9 Score 5 07/29/2025 Last PHQ-9: Questionnaire Data Not on file 1 Housing Stability Answer Date Recorded What is [...] Answer Date Recorded Patient Health Questionnaire-2 Score 2 07/29/2025 Internet Access Answer Date Recorded Internet Access Q1 Yes 06/18/2025 Internet Access Q2 Not on file 06/18/2025 Comments No Sex and Gender Information Value Date Recorded Sex Assigned at Female 07/13/2024 2:56 PM EDT Legal Sex Female 10:01 AM EDT Gender Identity Female 07/13/2024 2:56 PM EDT Sexual Orientation Straight 06/25/2025 10 :29 AM EDT documented as of this encounter Plan of Treatment Upcoming Encounters Date Type Department Care Team (Late st Contact Info) Description 11/20/2025 10:45 AM EST Procedure Visit [facility] MEDICINE [address] [place] [phone] Mary Cochran CNM [address] [place] [phone] 12/13/2025 2:00 PM EST Office Visit [address] [address] Thania Luciano MD [address] [place] [phone] documented as of this encounter Visit Diagnoses Not on filedocumented in this encounter Additional Health Concerns Assessment Noted Time PHQ-9 Depression Total Score: 5 07/29/20 8:32 AM EDT documented as of this encounter Care Teams Propeller Layout Worker Relationship Specialty Start Date End Date Thania Luciano MD [address] [place] [phone] PCP - General Internal Medicine 06/25/25 documented as of this encounter
--- OUTSIDE RECORDS SUMMARY | 2025-10-21 08:53 | XMS_ITS | Clinical Summary ---
Author Organization [employer] Address [address] [facility] 7[address] [place] [address] Care Team Providers Care Thread Twister Name Role Phone Thania Luciano MD Primary Care Pro vider Allergies No known active allergies Medications * This document contains information received from the source organization and may not represent a complete record from that organization. alpha tocopherol (Vitamin E) 100 units capsule Take 100 Units by mouth Once per day. Active cholecalcifero l (Vitamin D-3) 25 MCG (1000 UT) capsule Take 1,000 Units by mouth Once per day. Active Collagen-Vitam in C-Biotin (Collagen) 500-50-0.8 MG capsule Take by mouth. Activ e omega-3 (fish oil) 1000 MG capsule Take 1 capsule (1,000 mg) by mouth at noon and 1 capsule (1,000 mg) in the evening. 180 capsule 1 5 1:22 PM EST 09/26/20 25 Active Melatonin 3 MG tablet dispersible Take 1 tablet (3 mg) by mouth if needed at bedtime (insomnia). 30 tablet 3 5 1:22 PM EST 09/26/20 25 Active QUEtiapine (SEROquel) 25 MG tablet Take 1 tablet (25 mg) by mouth at bedtime. 30 tablet 2 5 1:22 PM EST 09/26/20 25 026 Active Diclofenac Sodium 1 % gel Apply 1 Application topically if needed each day (daily prn for arm pain). 50 g 5 1:22 PM EST 09/26/20 25 Active Melatonin 3 MG tablet dispersible Take 1 tablet (3 mg) by mouth if needed at bedtime (insomnia). 30 tablet 3 06/25/20 25 025 Discontinued(R eorder (will not trigger notification to Pharmacy)) fish oil (fish oil) 1000 MG capsule Take 1 capsule (1,000 mg) by mouth at noon and 1 capsule (1,000 mg) in the evening. 180 capsule 1 07/03/20 25 025 Discontinued(R eorder (will not trigger notification to Pharmacy)) QUEtiapine (SEROquel) 25 MG tablet Take 1 tablet (25 mg) by mouth at bedtime. 30 tablet 2 09/26/20 25 025 Discontinued(R eorder (will not trigger notification to Pharmacy)) Diclofenac Sodium 1 % gel Apply 1 Application topically if needed each day (daily prn for arm pain). 50 g 09/26/20 25 025 Discontinued(R eorder (will not trigger notification to Pharmacy)) Active Problems Problem Noted Date Diagnosed Date HLD (hyperlipidemia) 09/26/2025 Left arm pain 09/26/2025 Health care maintenance 06/25/2025 Bipolar 1 disorder (CMS/HCC) 06/25/2025 Assessment & Plan (06/26/2025 4:11 PM [...] of and recent move. Pt relocated from [place] about a year ago. She recalls having experiences in the past that affected her mental health. Moving to [place] has helped pt to feel less stressed, however, patient is not able to manage/cope on her own. She was diagnosed with bipolar disorder in [place]. MDQ completed during session given a positive score today. Her grieving process has being identified as trigger for her mood episodes making it worse to manage. Pt reports being on medication in the past but self-discharged due to side effects. Insomnia 06/25/2025 Alcohol dependence, binge pattern (CMS/HCC) 11/2024 Family history of cancer 06/25/2025 Grief 06/25/2025 [...] of and recent move. Pt relocated from [place] about a year ago. She recalls having experiences in the past that affected her mental health. Moving to [place] has helped pt to feel less stressed, however, patient is not able to manage/cope on her own. She was diagnosed with bipolar disorder in [place]. MDQ completed during session given a positive [...] organization. Date Type Department Care Team Description 09/26/2025 10:30 AM EST Office Visit [facility] MEDICINE [address] [place] [phone] Thania Luciano MD Dense breast tissue on mammogram, unspecified type (Primary Dx); Syncope, unspecified syncope type; Hyperlipidemia, unspecified hyperlipidemia type; Left arm pain; Family history of malignant neoplasm; Vasovagal syncope; Health care maintenance; Family history of cancer; Bipolar 1 disorder (CMS/HCC) (HCC); Insomnia due to other mental disorder 09/26/2025 Results Follow-Up [address] [place] [address] Thania Luciano MD XR Humerus Left 09/26/2025 Travel 09/25/[address] [address] Thania Luciano MD chart prep 09/17/2025 Patient Outreach [address] [address] Thania Luciano MD Pre-visit Planning (SDOH screening was completed on 06/18/2025) 08/14/2025 3:00 PM EDT Immunization [address] [address] Joann Squires RN Encounter for immunization 08/14/2025 Travel 08/09/[address] [address] Thania Luciano MD Telephone Call from Last 3 Months Immunizations Immunization Administration Dates Next Due HepB-CpG 08/14/2025,07/11/2025 Tdap 09/13/2024 Family History Medical History Relation [...] Sign Reading Time Taken Comments Blood Pressure 100/80 09/26/2025 11:02 AM EST Pulse 76 09/26/2025 11:02 AM EST Temperature 35.5 C (95.9 F) 09/26/2025 11:02 AM EST Respiratory Rate 18 09/26/2025 11:02 AM EST Oxygen Saturation 99% 09/26/2025 11:02 AM EST Inhaled Oxygen Concentration - - Weight 63.3 kg (139 lb 9.6 oz) 09/26/2025 11:02 AM EST Height 154.9 cm (5' 1 ) 09/26/2025 11:02 AM EST Body Mass Index 26.38 09/26/2025 11:02 AM EST Plan of Treatment Upcoming Encounters Date Type Department Care Team (Late st Contact Info) Description 11/20/2025 10:45 AM EST Procedure Visit [facility] MEDICINE [address] [place] [address] Mary Cochran CNM [address] [place], [place] [phone] 12/13/2025 2:00 PM EST Office Visit [facility] MEDICINE [address] [place] [address] Thania Luciano MD [address] [place] [address] Health Maintenance Due Date Last Done Comments CT Colonography 1978 Colonoscopy 1978 Colorectal Cancer Screening 1978 FIT DNA/Cologuard 1978 FIT 1978 FOBT 1978 Sigmoidoscopy 1978 Family Planning (PISQ) 1993 Pneumococcal Vaccine: Pediatrics (0 to 5 Years) and At-Risk Patients (6 to 49) Years (1 of 2 - PCV) 1997 Pap Smear 1999 Cervical Cancer Screening 2008 HPV/Cotest 2008 COVID-19 Vaccine ( - 2024-2 6 season) 2025 Influenza Vaccine (#1) 2025 SDOH Screening 06/18/2026 06/18/2025 Alcohol/Substance Use Screening 06/25/2026 06/25/2025 Disability Screening 07/11/2026 07/11/2025 Depression Screening 07/29/2026 07/29/2025, 07/29/2025 Tobacco Screening 09/26/2026 09/26/2025 Mammogram 08/01/2027 08/01/2025 Zoster Vaccines (1 of 2) 2028 DTaP/Tdap/Td Vaccines (2 - T d or Tdap) 09/13/2034 09/13/2024 RSV Patients and Patients Aged 60 years or older (1 - 1-dose 75+ series) 2053 HIV Screening Completed 07/02/2025 Hepatitis C Screening Completed 07/02/2025 Hepatitis B Vaccines Completed 08/14/2025, 07/11/2025 HIB Vaccines Aged Out No longer eligi [...] on patient's age to complete this topic Procedures Procedure Name Priority Date/Time Associated Diagnosis Comments AMB REFERRAL TO GENETICS Routine 09/30/2025 Family history of malignant neoplasm XR HUMERUS LEFT Routine 09/26/2025 12:25 PM EST Left arm pain BI MAMMOGRAM SCREENING TOMOSYNTHESIS BILATERAL Routine 08/01/2025 12:34 PM EDT Breast cancer screening by mammogram HEPATITIS C AB W/REFL TO HCV RNA, QN, PCR Routine 07/02/2025 8:11 AM EDT Annual physical exam HIV 1/2 ANTIGEN/ANTIBODY, FOURTH GENERATION W/RFL Routine 07/02/2025 8:11 AM EDT Annual physical exam from Last 3 Months or Most Recently Relevant to Health Maintenance Results * Referral to Genetics (09/30/2025) us Thania Lr MD OUTPATIENT REFERR AL ORDERABLES Final Result * XR Humerus Left (09/26/2025 12:25 PM EST) Anatomical Region Laterality Modality Upper Extremities, Humerus Left Radio graphic Imaging 09/26/2025 12:2 5 PM EST Narrative 09/26/2025 12:32 PM EST [facility] [address] [place] [address] XRay Report Signed Patient: Claudia Cao MR#: [id number] : 1980 Acct:[id number] Age/Sex: 44 / F ADM Date: 09/26/25 Loc: .HHCX Attending Dr: Thania Lr MD Ordering Physician: Thania Luciano MD Date of Service: 09/26/25 Procedure(s): XR humerus LT Accession Number(s): [id number] cc: Thania Luciano MD Reason for Exam: left humerus pain no trauma EXAMINATION: XR HUMERUS, LEFT CLINICAL INFORMATION: left humerus pain no trauma COMPARISON: None available. TECHNIQUE: AP and lateral views of the left humerus. FINDINGS: No acute cortical disruption. No lytic or blastic lesions. No periosteal bone reaction. No subcutaneous emphysema. No metallic or radiopaque foreign body. XR/XR humerus LT IMPRESSION: Normal x-ray, left humerus. Electronically signed by: Denys Dangelo MD 09/26/2025 12:29 PM [facility] Dictated By: Denys Fernandez MD Signed By: <Electronically signed by Denys Griffiths MD in OV> 09/26/25 1229 DD/ 1225 TD/TT: 09/26/25 1227 Workforce Services Representative: Procedure Note Donotuseinterpreter, Image - 09/26/2025 [place] [address] XRay Report Signed Patient: Asim Cao#: [id number] : 1980Acct:[id number] Age/Sex: 44 / FADM Date: 09/26/25 Loc: .HHCX Attending Dr: Thania Lr MD Ordering Physician: Thania Luciano MD Date of Service: 09/26/25 Procedure(s): XR humerus LT Accession Number(s): [id number] cc: Thania Luciano MD Reason for Exam: left humerus pain no trauma EXAMINATION: XR HUMERUS, LEFT CLINICAL INFORMATION: left humerus pain no trauma COMPARISON: None available. TECHNIQUE: AP and lateral views of the left humerus. FINDINGS: No acute cortical disruption. No lytic or blastic lesions. No periosteal bone reaction. No subcutaneous emphysema. No metallic or radiopaque foreign body. XR/XR humerus LT IMPRESSION: Normal x-ray, left humerus. Electronically signed by: Denys Dangelo MD 09/26/2025 12:29 PM EST RP Dictated By: Denys Fernandez MD Signed By: <Electronically signed by Denys Griffiths MDin OV> 09/26/25 1229 DD/ 1225 TD/TT: 09/26/25 1227 Workforce Services Representative: Thania Lr MD IMG XR PROCEDURES Edited Result - Final * BI Mammogram Screening Tomosynthesis Bilateral (08/01/2025 12:34 PM EDT) Anatomical Region Laterality Modality Breast Bilateral Mammography 08/01/2025 12:3 4 PM EDT Narrative 08/09/2025 6:19 PM EDT [address] [place] [address] Mammography Report Signed Patient: Claudia Cao MR#: [id number] : 1980 Acct:[id number] Age/Sex: 44 / F ADM Date: 08/01/25 Loc: NERYO Attending Dr: Thania Lr MD Ordering Physician: Thania Luciano MD Re sults: 1Negative Date of Service: 08/01/25 Follow Up: 1 Year From [facility] Mammogram Procedure(s): MM tomosynthesis screening BI Accession Number(s): [id number] cc: Thania Luciano MD Reason For Exam: screening mammogram EXAMINATION: MM SCREENING DIGITAL BREAST TOMOSYNTHESIS, BILATERAL CLINICAL INFORMATION: Screening. Asymptomatic. COMPARISON: Prior images from [place] are not available for comparison. This will be considered a new baseline study. TECHNIQUE: Digital breast tomosynthesis is performed in mediolateral oblique and craniocaudal views along with computer-aided detection (CAD). Synthesized 2D images are generated from the tomosynthesis. FINDINGS: BREAST COMPOSITION: The breasts are heterogeneously dense, which may obscure small masses. BILATERAL BREASTS: No significant masses, suspicious calcifications or other abnormalities are seen in either breast. MM/MM tomosynthesis screening BI IMPRESSION: BILATERAL BREASTS: Negative, no mammographic evidence of malignancy. Normal interval follow-up is recommended in 12 months. ASSESSMENT: BI-RADS: Category 1: Negative RECOMMENDATION: Routine annual mammography screening. FOLLOW-UP: 1 year F/U This examination should not preclude the clinical evaluation of a suspicious palpable abnormality. This patient's information was entered into a reminder system with a target due date for their next mammogram. Electronically signed by: Dary Navarro MD 08/09/2025 06:16 PM EDT RP Dictated By: Dary Navarro MD Signed By: <Electronically signed by Dary Navarro MD in OV> 08/09/25 1816 DD/ 1234 TD/TT: 08/01/25 1245 Workforce Services Representative: Procedure Note Donotuseinterpreter, Image - 08/09/2025 [place] [facility]'s [address] [place] [address] Mammography Report Signed Patient: Rosalba CaosMR#: [id number] : 1980Acct:[id number] Age/Sex: 44 / FADM Date: 08/01/25 Loc: HO.MAMMO Attending Dr: Thania Lr MD Ordering Physician: Thania Luciano sults: 1Negative Date of Service: 08/01/25Follow Up: 1 Year From Orig ina Mammogram Procedure(s): MM tomosynthesis screening BI Accession Number(s): [id number] cc: Thania Luciano MD Reason For Exam: screening mammogram EXAMINATION: MM SCREENING DIGITAL BREAST TOMOSYNTHESIS, BILATERAL CLINICAL INFORMATION: Screening. Asymptomatic. COMPARISON: Prior images from [place] are not available for comparison. This will be considered a new baseline study. TECHNIQUE: Digital breast tomosynthesis is performed in mediolateral oblique and craniocaudal views along with computer-aided detection (CAD). Synthesized 2D images are generated from the tomosynthesis. FINDINGS: BREAST COMPOSITION: The breasts are heterogeneously dense, which may obscure small masses. BILATERAL BREASTS: No significant masses, suspicious calcifications or other abnormalities are seen in either breast. MM/MM tomosynthesis screening BI IMPRESSION: BILATERAL BREASTS: Negative, no mammographic evidence of malignancy. Normal interval follow-up is recommended in 12 months. ASSESSMENT: BI-RADS: Category 1: Negative RECOMMENDATION: Routine annual mammography screening. FOLLOW-UP: 1 year F/U This examination should not preclude the clinical evaluation of a suspicious palpable abnormality. This patient's information was entered into a reminder system with a target due date for their next mammogram. Electronically signed by: Dary Navarro MD 08/09/2025 06:16 PM EDT RP Dictated By: Dary Navarro MD Signed By: <Electronically signed by Dary Navarro MD in OV> 08/09/25 1816 DD/ 1234 TD/TT: 08/01/25 1245 Workforce Services Representative: us Thania Lr MD IMG BI PROCEDURES Final Result * Hepatitis C Antibody with Reflex to HCV, RNA, Quantitative, Real-Time PCR (07/02/2025 8:11 AM EDT) Hepatitis C Antibody Nonreactive Nonreactive [facility] Comment:Antibodies to HCV no t detected; does not exclude early acuteHCV infection. Blood Venous blood specimen / Unknown 07/02/2025 8:11 AM EDT 07/02/2025 11:20 AM EDT us Thania Lr MD LAB BLOOD ORDERAB LES Final Result [facility] [address] [place] [address] [phone] * HIV-1/2 Antigen and Antibodies, Fourth Generation, with Reflexes (07/02/2025 8:11 AM EDT) HIV AB/AG Nonreactive Nonreactive [facility] Comment:HIV-1 p24 Ag and/or HIV-1/HIV-2 Ab not detected.A test result that is nonreactive does not exclude thepossibility of exposure to or infection with HIV-1 and/orHIV-2. Nonreactive results in this assay for individualswith prior exposure to HIV-1 and/or HIV-2 may be due toantigen and antibody levels that are below the limit ofdetection of this assay.The [employer] HIV Ag/Ab Combo assay result andsupplemental assay results should be interpreted inconjunction with the patient's clinical presentation,history and other laboratory results. If the results areinconsistent with clinical evidence, additional testing issuggested to confirm the result. Blood Venous blood specimen / Unknown 07/02/2025 8:11 AM EDT 07/02/2025 11:20 AM EDT Thania Lr MD LAB BLOOD ORDERAB LES Final Result [facility] [address] [place] [address] [phone] from Last 3 Months or Most Recently Relevant to Health Maintenance Insurance [facility] 2 Care Teams Thread Twister Relationship Specialty Start Date End Date Thania Luciano MD [address] [place] [phone] PCP - General Internal Medicine 06/25/25
[2025-10-21 10:00] LABS: Alanine Aminotransferase 11 U/L (0-31); Albumin Level 4.3 g/dL (3.5-5.0); Alkaline Phosphatase 72 U/L (39-117); Anion Gap 9 (12-20); Aspartate Amino Transferase 18 U/L (5-31); Blood Urea Nitrogen 18 mg/dL (9-16); Calcium 9.1 mg/dL (8.4-10.2); Carbon Dioxide 29 mmol/L (22-29); Chloride 109 mmol/L (96-108); Cholesterol 255 mg/dL (<200); Estimated Glomerular Filt Rate > 60; HDL Cholesterol 58 mg/dL (>40); Potassium 4.7 mmol/L (3.3-5.1); Sodium 142 mmol/L (135-145); Total Protein 7.0 g/dL (6.5-8.0); Triglycerides 176 mg/dL (<150)
== END 2025-10-21 08:49 ==
LOC: HO.LAB 08:48
PROVIDERS: PCP Student in an Organized Health Care Education/Training Program; Visit Provider Student in an Organized Health Care Education/Training Program
DX: E78.5 Hyperlipidemia, unspecified (principal)
CPT/HCPCS: 36415; 80053; 80061